=== PATIENT | male | born 1955 | race Caucasian/White ===

== ENCOUNTER 2016-10-17 06:44 | Day surgery (SDC) | payer BC ==
--- NOTE | ~2016-10-17 | OP ---
Record Of Operation [facility] [address] [place]. [address] NAME: JORDY BRADLEY : 51 STATUS : [facility]#: [id number] AGE: 61 ADM/REG DATE : 10/17/16 MR#: [id number] REPORT SERV DATE: 10/17/16 DICTATED BY: TIFFANY JONES JR. 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 POSTOPERATIVE DIAGNOSIS: Pathology pending. No obvious cancer on touch prep. NAME OF OPERATION: Diagnostic and therapeutic bronchoscopy, endobronchial ultrasound with multiple fine-needle aspirations, denise stations 4R and 7. SURGEON: Tiffany Jones M.D. RESIDENT SURGEON: Antony Jackson M.D. ANESTHESIA: General endotracheal. FINDINGS: The patient was noted to have enlarged pathologic appearing lymph node in the subcarinal area. Touch preps were negative for malignancy. Lymphocytes were obtained. Abundant material was sent for cell block. There were benign appearing lymph nodes in the paratracheal and hilar regions. These lymph nodes were also benign on touch prep. Lymphocytes were obtained. Additional material was sent for cell block. Final pathology is pending. Most abnormal lymph node was subcarinal lymph node and did not have any metastatic cells on touch-prep. There were no endobronchial lesions. DETAILS OF OPERATION: After adequate general anesthesia, the patient was intubated with LMA. Diagnostic and therapeutic bronchoscopy was performed with the above findings noted. Endobronchial ultrasound was then performed with the most strikingly abnormal lymph node which was in the subcarinal region. Multiple fine-needle aspirations demonstrated normal lymphocytes. There was no evidence of malignancy. Additional material was sent for cell block. 4R lymph node was then sampled in a similar fashion. Touch preps again demonstrated benign appearing lymphocytes. Adequate hemostasis was obtained. The procedure was terminated at this point. The patient tolerated the procedure well and taken back to the recovery room in stable condition. We will plan on getting a CT-guided needle biopsy of the right upper lobe chest wall lesion. EMMA/BRODY Tiffany Jones Jr., M.D. / [id number] Record Of Operation [facility] [address] [place] [id number] NAME: JORDY BRADLYE : 51 STATUS : [facility] PAT#: [id number] AGE: 61 ADM/REG DATE : 10/17/16 MR#: [id number] REPORT SERV DATE: 10/17/16 DICTATED BY: TIFFANY JONES JR. DATE: 10/17/16 REPORT STATUS : Draft TRANSCRIBED BY: BRODY DATE: 10/17/16 CC: Citlalli Levine Jr., M.D. Dr. Craig Swafford Steven Stubblefield, M.D., F.A.C.C.
[~2016-10-17 06:44] MED LIST: *DENIES
[2016-10-17 07:04] LABS: HEMATOCRIT 33.8 % (40.0-51.0); HEMOGLOBIN 11.6 g/dL (13.6-17.8)
[2016-10-17 07:19] LABS: BUN (BLOOD UREA NITROGEN) 17 MG/DL (6-23); CALCIUM, SERUM 9.4 MG/DL (8.5-10.4); CHLORIDE, SERUM 104 MMOL/L (96-112); CO2 (CARBON DIOXIDE) 27 MMOL/L (24-34); CREATININE 1.12 MG/DL (0.70-1.30); GFR AFRICAN AMERICAN 81 ML/MIN (>=60); GFR NON AFRICAN AMERICAN 70 ML/MIN (>=60); GLUCOSE, SERUM 202 MG/DL (60-99); POTASSIUM, SERUM 4.1 MMOL/L (3.5-5.3); SODIUM, SERUM 140 MMOL/L (135-148)
== END 2016-10-17 11:17 | disposition home or self-care (01) ==
LOC: DMU 06:44
PROVIDERS: Thoracic Surgery (Cardiothoracic Vascular Surgery)
PROC: 07B74ZX Excision of Thorax Lymphatic, Percutaneous Endoscopic Approach, Diagnostic (ICD-10-PCS; principal; 2016-10-17 08:00)
DX: R91.8 Other nonspecific abnormal finding of lung field (principal); I25.119 Atherosclerotic heart disease of native coronary artery with unspecified angina pectoris; I25.2 Old myocardial infarction; E11.9 Type 2 diabetes mellitus without complications; Z95.5 Presence of coronary angioplasty implant and graft; Z88.2 Allergy status to sulfonamides; Z88.5 Allergy status to narcotic agent; Z79.84 Long term (current) use of oral hypoglycemic drugs; Z85.841 Personal history of malignant neoplasm of brain; Z86.718 Personal history of other venous thrombosis and embolism; Z87.891 Personal history of nicotine dependence; Z87.01 Personal history of pneumonia (recurrent); Z86.711 Personal history of pulmonary embolism; Z87.440 Personal history of urinary (tract) infections; Z98.890 Other specified postprocedural states
CPT/HCPCS: 80048; 82962; 85014; 85018; 88172; 88173; 88177; 88305; 93005; A9270-GY; C1725; J2250; J2370; J2405; J3010